=== PATIENT | female | born 1975 | race Caucasian/White ===

== ENCOUNTER 2017-01-03 17:54 | Inpatient (IN) ==
[2017-01-03] MEDS ORDERED: Vancomycin 1,000 MG in D5% in Water 250 ML IVPB ONE (18:28)
--- NOTE | 2017-01-03 18:52 | Emergency Department Note ---
Disposition Clinical Impression: Abscess, Erythema Disposition: Admitted As Inpatient Condition: Fair Referrals: Gadiel Sun, PAC [Primary Care Provider] - Time of Disposition: 18:45 General Adult HPI - General Chief complaint: ED Extremity Injury, Upper Stated complaint: redness in left arm post lancing Time Seen by Provider: 01/03/17 18:12 Source: patient Limitations: no limitations Nursing Notes Reviewed: Yes Vital Signs Reviewed: Yes - History of Present Illness HPI Narrative: 41-year-old female presents to the emergency department with L hand pain and swelling. patient was seen in the emergency department yesterday and had I&D of her L hand. Pt states she has been taking Bactrim and has changed the dressing at home but symptoms have been worsening. +increased swelling, erythema tracking up the arm, nausea. Pain Scale: 9 - Related Data Previous Rx's Medication Instructions Recorded Ondansetron ODT [Zofran ODT] 4 mg SL Q6HR PRN #14 tab.rapdis 11/14/15 HYDROcodone/Acet 5/325 mg [[place] 1 tab PO Q6H PRN #15 tab 10/05/16 5-325 mg] Sulfamethoxazole/Trimeth DS 2 each PO BID #28 tablet 10/05/16 [Bactrim DS] cephALEXin [Keflex] 500 mg PO QID #28 capsule 10/05/16 Sulfamethoxazole/Trimeth DS 1 each PO BID #16 tablet 01/02/17 [Bactrim DS] Allergies Allergy/AdvReac Type Severity Reaction Status Date / Time nalbuphine [From Nubain] Allergy Swelling Verified 01/03/17 18:03 of Lip/Tongue/Throat All systems ED: reviewed and negative except as stated. Review of Systems: As Per HPI Constitutional: Reports: fever, weakness Cardiovascular: Denies: chest pain, palpitations Respiratory: Denies: cough, dyspnea, wheezes Gastrointestinal: Reports: nausea. Denies: abdominal pain, vomiting Genitourinary: Denies: urgency, dysuria Integumentary: Reports: rash Past Medical History - Past Medical History Attestation: Yes The following information was validated with the patient. Source: patient Medical history: Reports: no medical history Psychiatric history: Reports: no psych history [employer] history: Reports: bilateral tubal ligation - Social History Smoking Status: Current every day smoker Smokeless Tobacco Status: No Alcohol use: Reports: none Drug use: Reports: marijuana Physical Exam General: Alert and in no acute distress Skin: Warm, dry, intact Head: Normocephalic and atraumatic Neck: Supple, trachea midline and no tenderness Cardiovascular: RRR, no murmur, normal perfusion Respiratory: CTAB, no wheezing, cough, or respiratory distress Musculoskeletal: Normal strength, TTP of the L hand, +erythema of LUE with proximal tracking. GI: Soft, nontender, nondistended. Bowel sounds present Neuro: A&O to person, place, time and situation. No focal deficits noted on exam Psychiatric: cooperative and appropriate mood and affect. - General Limitations: no limitations General appearance: alert Course Vital Signs Temperature 99.5 F 01/03/17 18:03 Pulse Rate 96 01/03/17 18:03 Respiratory Rate 20 01/03/17 18:03 Blood Pressure 136/87 01/03/17 18:03 O2 Sat by Pulse Oximetry 95 01/03/17 18:03 Temperature 99.5 F 01/03/17 18:03 Pulse Rate 80 01/03/17 18:48 Respiratory Rate 20 01/03/17 18:03 Blood Pressure 129/85 01/03/17 18:48 O2 Sat by Pulse Oximetry 99 01/03/17 18:48 Oxygen Delivery Oxygen Delivery Room Air Medical Decision Making - MDM Narrative Medical decision making narrative: Pt has worsening symptpms and has failed outpt therapy. Pt will be admitted to hospital for further care and evaluation. - Medical Records Medical records reviewed: Yes I reviewed the patient's medical records. - Lab Data Lab results reviewed: Yes I reviewed the patient's lab results. - Radiology Data Radiology results reviewed: Yes I reviewed the patient's radiology results.
[2017-01-03] MEDS ORDERED: *HR* HYDROmorphone (PF) 1 MG/ML SYRINGE IVP ONE (18:54)
[2017-01-03 18:58] LABS: Basophils % 0.3 %; Eosinophils # 0.3 K/mcL (0.0-0.6); Eosinophils % 2.3 %; Hematocrit 39.6 % (35.3-44.9); Hemoglobin 13.3 g/dL (11.5-15.4); Immature Granulocytes % 0.3 % (0-4); Lymphocytes # 2.1 K/mcL (0.6-4.6); Lymphocytes % 17.9 %; Mean Corpuscular HGB Conc 33.6 g/dL (31.6-35.5); Mean Corpuscular Hemoglobin 30.5 pg (28.0-33.3); Mean Corpuscular Volume 90.8 fL (83.0-100.0); Mean Platelet Volume 9.5 fL (9.4-12.4); Monocytes # 0.6 K/mcL (0.0-1.3); Monocytes % 5.5 %; Neutrophils # 8.6 K/mcL (1.6-8.9); Platelet Count 240 K/mcL (140-400); Red Blood Count 4.36 M/mcL (3.82-4.97); Red Cell Distribution Width 14.8 % (11.5-14.5); Segmented Neutrophils % 73.7 %
[2017-01-03] MEDS ORDERED: Naloxone 0.4 MG/ML INJ IVP PRN (20:52)
[2017-01-03] MEDS ORDERED: Ondansetron 4 MG/2 ML VIAL IVP PRN (20:52)
[2017-01-03] MEDS ORDERED: Acetaminophen 325 MG TABLET PO PRN (20:52)
[2017-01-03] MEDS: 0.9 % Sodium Chloride 1,000 ML IVC SCH (22:19)
[2017-01-03] MEDS: Famotidine 20 MG TABLET PO SCH (22:19)
--- NOTE | 2017-01-03 23:08 | Internal Med History&Physical ---
Date of Encounter: 01/03/17 Time of Encounter: 22:50 Assessment and Plan (1) Cellulitis and abscess of hand Current visit: Yes Status: Acute Acute cellulitis of left hand and left forearm with abscess of left hand - probably secondary to injury, s/p I&D yesterday Continue IV fluids, empiric IV Zosyn, IV Vancomycin, IV Morphine PRN Left hand x-ray - pending Chest x-ray - no acute process WBC - 11.6 Orthopedic consult - Dr. Cain Elevate left arm, labs in a.m., monitor closely (2) Tobacco abuse Current visit: Yes Status: Chronic Counseled about cessation, nicotine patch (3) DVT prophylaxis Current visit: Yes Status: Acute Continue heparin subcutaneous Internal Medicine - H&P: HPI Chief complaint: Left hand swelling and pain Admitted From: Emergency Dept Plans for Post Hospital Care: Home History of present illness: Ms. Denise is a 41 year old female with no significant past medical history. She presents to the ED with complaints of pain and swelling of her left hand and forearm. Examined in the room. Patient is awake and alert. Not in any distress. Able to provide all history. Daughter is at bedside. Patient states she initially came to the ED yesterday for left hand swelling. Was diagnosed with superficial abscess on left hand. She was evaluated by Dr. Cain in the ED, And bedside I&D was performed. Wound was packed with iodoform. She was discharged with Bactrim DS. symptoms of left hand swelling initially started 4 days ago. She cannot think of anything that may have started the symptoms. Denies bug bite or injury. Patient states she did well last night. Patient states when she woke up this morning, her swelling and pain of left hand was worse. She also noticed that her left forearm was swollen. States that there is mild drainage from the left hand. She noticed some redness of left forearm. Seems to be tracking up the left arm. Patient also complains of pain in the left axillary region. States her pain is currently 10 out of 10. Symptoms are worseith movement. No alleviating factors. She complains of mild subjective fever. No other associated symptoms. Denies chest pain or shortness of breath or palpitations or dizziness or cough. No abdominal pain or vomiting or diarrhea. No other acute complaints. Initial workup in the ED shows slightly elevated white count. She has been given IV vancomycin and the ED. X-ray of the left hand is pending. Patient is being admitted for left hand cellulitis with abscess. Orthopedic consult pending. She will be on IV Zosyn and IV vancomycin. IV morphine as needed for pain. Patient has been explained about her condition and plan of care in detail. She understood and agreed. No unanswered questions. CODE STATUS full code. Past Med Surg Social Fam HX - Past Medical History Medical history: no medical history Psychiatric history: no psych history - Past Surgical History Surgical History: cholecystectomy - Social History Smoking Status: Current every day smoker Smokeless Tobacco Status: No Alcohol use: none Drug use: marijuana - Family History Mother Adopted: No Hx Family Cardiac Disorders: No Hx Family Respiratory Disorders: No Internal Medicine - H&P: Meds 3 Allergy/AdvReac Type Severity Reaction Status Date / Time nalbuphine [From Nubain] Allergy Swelling Verified 01/03/17 18:03 of Lip/Tongue/Throat All Systems PM: A 10-system review of systems was performed and is negative for pertinent findings except as documented above in the HPI. - Constitutional Constitutional: fatigue, fever(s), no weakness - EENT Eyes: no blurry vision - Cardiovascular Cardiovascular ROS IM: no chest pain, no claudication, no diaphoresis, no dyspnea, no dyspnea on exertion, no edema, no lightheadedness, no orthopnea, no palpitations, no syncope - Respiratory Respiratory: no cough, no dyspnea, no hemoptysis, no dyspnea on exertion, no wheezing, no pain on inspiration - Gastrointestinal Gastrointestinal: no abdominal pain, no bloating, no cramping, no diarrhea, no hematemesis, no hematochezia, no nausea, no vomiting - Genitourinary Genitourinary: no dysuria - Musculoskeletal Additional comments: Left hand and forearm pain and swelling. Redness over her left forearm. Mild drainage from left hand. - Neurological Neurological ROS: no abnormal gait, no confusion, no dizziness, no focal weakness, no loss of vision, no numbness, no tingling, no weakness - Constitutional Vitals: Temp Pulse Resp BP Pulse Ox 98.8 F 70 20 113/72 97 01/03/17 21:36 01/03/17 21:36 01/03/17 21:36 01/03/17 21:36 01/03/17 21:36 General appearance: Present: cooperative, A&O X 3, pleasant, no acute distress, obese, answers questions appropriately Exam: In discomfort due to pain - Head Head exam: Present: atraumatic - Eye Eye exam: Present: EOMI - ENT ENT exam: Present: mucous membranes moist - Respiratory Respiratory exam: Present: CTAB. Absent: rales, rhonchi, wheezes, tachypnea - Cardiovascular Cardiovascular exam: Present: RRR, +S1, +S2 - GI/Abdominal GI/Abdominal exam: Present: soft. Absent: distended, firm, guarding, tenderness - Extremities Exam Extremities exam: Present: radial pulses palpable and symmetrical. Absent: calf tenderness, cyanotic, pedal edema Additional comments: Swelling and tenderness over left hand dorsal and palmar aspect. Mild swelling over left forearm. Erythema over left forearm. Minimal drainage from left hand. Limited range of motion of fingers on the left hand. Swelling of all fingers on the left hand. - Neurological Exam Neurological exam: Present: alert, oriented X3, no focal deficits. Absent: facial droop, speech deficit Internal Med - H&P Results - Labs CBC & Chem 7: 01/03/17 18:43 - Impressions ITS Impressions Chest X-Ray 01/03/17 20:57 IMPRESSION: No acute process. D/ / Bob Lobato MD / Bob Lobato MD Interpreting Provider: Bob Lobato MD
[2017-01-03] MEDS: *HR* Heparin 5,000 UNIT/ML VIAL SQ SCH (23:59)
[2017-01-03] MEDS: Nicotine 21 MG PATCH.TD24 TD SCH (23:59)
[2017-01-04 04:25] LABS: Basophils % 0.4 %; Eosinophils # 0.4 K/mcL (0.0-0.6); Eosinophils % 4.3 %; Hematocrit 35.9 % (35.3-44.9); Immature Granulocytes % 0.3 % (0-4); Lymphocytes # 2.6 K/mcL (0.6-4.6); Lymphocytes % 28.7 %; Mean Corpuscular HGB Conc 32.6 g/dL (31.6-35.5); Mean Corpuscular Hemoglobin 30.2 pg (28.0-33.3); Mean Corpuscular Volume 92.5 fL (83.0-100.0); Mean Platelet Volume 9.9 fL (9.4-12.4); Monocytes # 0.8 K/mcL (0.0-1.3); Monocytes % 8.6 %; Neutrophils # 5.2 K/mcL (1.6-8.9); Platelet Count 208 K/mcL (140-400); Red Blood Count 3.88 M/mcL (3.82-4.97); Red Cell Distribution Width 14.8 % (11.5-14.5); Segmented Neutrophils % 57.7 %
[2017-01-04 04:30] LABS: Prothrombin Time 10.6 Seconds (9.4-12.1)
[2017-01-04 04:37] LABS: Hemoglobin 11.7 g/dL (11.5-15.4)
[2017-01-04 04:40] LABS: BUN/Creatinine Ratio 15 (6-26); Blood Urea Nitrogen 11 mg/dL (7-20); Calcium 8.5 mg/dL (8.6-10.8); Carbon Dioxide 20 mEq/L (19-29); Chloride 109 mEq/L (98-109); Glucose 118 mg/dL (70-99); Osmolality,Calculated 286 (280-300); Potassium 3.5 mEq/L (3.5-4.5); Sodium 138 mEq/L (136-145); eGFR For African Americans > 60 (> 60); eGFR For Non-African Americans > 60 (> 60)
[2017-01-04] MEDS: *HR* Morphine 2 MG/ML SYRINGE IVP PRN ×5 (04:50→19:28)
[2017-01-04] MEDS: Vancomycin 1,500 MG in D5% in Water 250 ML IVPB SCH ×2 (04:53→17:30)
[2017-01-04] MEDS ORDERED: Vancomycin 1,000 MG in D5% in Water 250 ML IVPB SCH (06:00)
--- NOTE | 2017-01-04 07:27 | Orthopedic Consult Note ---
Date of Encounter: 01/04/17 Time of Encounter: 07:23 Assessment and Plan (1) Abscess Current Visit: Yes Status: Acute I did discuss the diagnosis in detail with the patient. She does have an abscess of the left hand which is developing into a collar button abscess. She is admitted to the hospitalist and is on broad-spectrum IV antibiotics. My recommendation was for incision, drainage, irrigation, and debridement, extending the volar incision and making a small dorsal incision as well. The risks discussed included but were not limited to stiffness, bleeding, infection , blood clots, damage to neurovascular structures, tendons, ligaments, and bone. Also discussed was the risk of continued symptoms and possible need for further procedures. I did recommend performing this under a local anesthetic and we will do so later today at the bedside. The patient is aware of the risk of persistence of infection and if she does not improve in the next 24 hours she may require a formal operative debridement and irrigation. I explained all this to the patient in simple terms and she wished to proceed. History of Present Illness HPI: Ms. Denise is a 41 year old female who did have an incision and drainage procedure performed on her left hand on Wednesday. She had done well on Wednesday with her oral antibiotics, Bactrim, and daily dressing and packing changes. Wednesday, however she developed worsening of her pain and presented back to the emergency department where she was admitted to the hospitalist. The patient complains of isolated pain to the left hand in the area of the I&D site. No new injuries or complaints otherwise. No feelings of illness. No numbness, tingling, or any other associated signs or symptoms or modifying factors. Past Med Surg Social Fam HX - Past Medical History Medical history: no medical history Psychiatric history: no psych history - Past Surgical History Surgical History: cholecystectomy - Social History Smoking Status: Current every day smoker Smokeless Tobacco Status: No Alcohol use: none Drug use: marijuana - Family History Mother Adopted: No Hx Family Cardiac Disorders: No Hx Family Respiratory Disorders: No Medications and Allergies 3 Allergy/AdvReac Type Severity Reaction Status Date / Time nalbuphine [From Nubain] Allergy Swelling Verified 01/03/17 18:03 of Lip/Tongue/Throat All Systems Reviewed: Constitutional and musculoskeletal systems were reviewed and are negative unless otherwise stated in history of present illness. Physical Exam - Constitutional Vitals: Temp Pulse Resp BP Pulse Ox 98.3 F 68 18 112/75 96 01/04/17 04:18 01/04/17 04:18 01/04/17 04:18 01/04/17 04:18 01/04/17 04:18 CONSTITUTIONAL -Vitals reviewed -The patient is well developed, well nourished, well groomed PSYCHIATRIC -Fully alert and oriented -Pleasant mood LEFT UPPER EXTREMITY Moderate diffuse swelling of the hand Inspection shows the I&D site is draining nicely with a mild amount of purulent drainage. Minimal surrounding erythema on the volar aspect around the I&D site. She does have some ecchymosis along the ulnar aspect of the ring finger base with some swelling and edema in the dorsal aspect of the hand. She can grossly flex and extend the digits with some limitation due to the pain and stiffness The fingertips are all grossly sensate and well-perfused, and the radial artery pulse is 2+. Results - Labs Result Diagrams: 01/04/17 03:41 01/04/17 03:41 Labs: Abnormal lab results RDW 14.8 % (11.5-14.5) H 01/04/17 03:41 Glucose 118 mg/dL (70-99) H 01/04/17 03:41 Calcium 8.5 mg/dL (8.6-10.8) L 01/04/17 03:41 H & H 01/04/17 Range/Units 03:41 Hgb 11.7 D (11.5-15.4) g/dL Hct 35.9 (35.3-44.9) % All other labs normal. Consult Discharge Plan - Plan Referrals: Gadiel Sun, PAC [Primary Care Provider] -
[2017-01-04] MEDS: Piperacillin/Tazobactam 3.375 GM in D5% in Water (Mini-Bag+) 100 ML IVPB SCH ×4 (07:54→23:16)
[2017-01-04] MEDS: Nicotine 21 MG PATCH.TD24 TD SCH (07:56)
[2017-01-04] MEDS: Famotidine 20 MG TABLET PO SCH ×2 (07:56→19:28)
[2017-01-04] MEDS: *HR* Heparin 5,000 UNIT/ML VIAL SQ SCH ×3 (07:56→23:13)
[2017-01-04] MEDS ORDERED: Lidocaine/EPI 1:100k 1% 20 ML VIAL INFILT ONE (12:45)
--- NOTE | 2017-01-04 16:39 | Internal Med Progress Note ---
Date of Encounter: 01/04/17 Time of Encounter: 16:36 - Assessment and plan (1) Cellulitis and abscess of hand Current Visit: Yes Status: Acute Assessment and plan: s/p bedside I&D by Dr. Cain (01/04/17) continue IV abx (Vanc and Zosyn0 f/u wound cultures pain control (2) Tobacco abuse Current Visit: Yes Status: Chronic Assessment and plan: smoking cessation counseling provided nicotine supplementation provided (3) Obesity (BMI 30-39.9) Current Visit: Yes Status: Acute (4) DVT prophylaxis Current Visit: Yes Status: Acute Assessment and plan: Heparin SQ - Subjective Interval history: Pt seen and examined with family present at bedside. S/P I&D of the right hand abscess by orthopedic surgery. reports of severe pain at the site of incision. will adjust pain medications - Constitutional Vitals: Temp Pulse Resp BP Pulse Ox 97.8 F 59 18 115/76 98 01/04/17 12:11 01/04/17 12:11 01/04/17 12:11 01/04/17 12:11 01/04/17 12:11 General appearance: Present: cooperative, A&O X 3, pleasant, no acute distress, obese, answers questions appropriately - Head Head exam: Present: atraumatic, normocephalic - Eye Eye exam: Present: conjuntiva pink, sclera anicteric - Respiratory Respiratory exam: Present: CTAB. Absent: accessory muscle use, rales, rhonchi, wheezes - Cardiovascular Cardiovascular exam: Present: RRR, +S1, +S2. Absent: diastolic murmur, gallop, rubs, systolic murmur - GI/Abdominal GI/Abdominal exam: Present: normal bowel sounds, soft, no peritoneal signs. Absent: distended, tenderness - Extremities Exam Extremities exam: Present: warm, radial pulses palpable and symmetrical. Absent : calf tenderness, cyanotic, pedal edema - Neurological Exam Neurological exam: Present: alert, oriented X3 - Psychiatric Psychiatric exam: Present: normal affect, normal mood Internal Medicine: Result - Labs CBC & Chem 7: 01/04/17 03:41 01/04/17 03:41 Labs: Short CBC 01/04/17 Range/Units 03:41 WBC 9.0 (4.3-11.1) K/mcL Hgb 11.7 D (11.5-15.4) g/dL Hct 35.9 (35.3-44.9) % Plt Count 208 (140-400) K/mcL Neutrophils # 5.2 (1.6-8.9) K/mcL BMP 01/04/17 03:41 Sodium 138 Potassium 3.5 Chloride 109 Carbon Dioxide 20 BUN 11 Creatinine 0.73 Glucose 118 H Calcium 8.5 L - ABG Interpretation ABG results: PT/INR, D-dimer PT 10.6 Seconds (9.4-12.1) 01/04/17 03:41 - Impressions Impressions Chest X-Ray 01/03/17 20:57 IMPRESSION: No acute process. D/ / Bob Lobato MD / Bob Lobato MD Interpreting Provider: Bob Lobato MD Forearm X-Ray 01/04/17 00:01 IMPRESSION: Soft tissue swelling in the hand and forearm without radiographic evidence for osteomyelitis at this time. D/ / Jimenez Pascual MD / Jimenez Pascual MD Interpreting Provider: Jimenez Pascual MD Hand X-Ray 01/04/17 00:01 IMPRESSION: Soft tissue swelling in the hand and forearm without radiographic evidence for osteomyelitis at this time. D/ / Jimenez Pascual MD / Jimenez Pascual MD Interpreting Provider: Jimenez Pascual MD Consult Discharge Plan - Plan Referrals: Gadiel Sun, PAC [Primary Care Provider] -
[2017-01-04] MEDS: *HR* HYDROcodone/Acet 5/325 mg TABLET PO PRN ×2 (17:06→23:13)
[2017-01-05] MEDS: *HR* Morphine 2 MG/ML SYRINGE IVP PRN ×5 (00:30→22:04)
[2017-01-05 03:16] LABS: Basophils # 0.1 K/mcL (0.0-0.2); Basophils % 0.7 %; Eosinophils # 0.3 K/mcL (0.0-0.6); Eosinophils % 4.3 %; Hematocrit 35.7 % (35.3-44.9); Hemoglobin 11.9 g/dL (11.5-15.4); Immature Granulocytes % 0.6 % (0-4); Immature Platelets 2.6 % (1.1-6.1); Lymphocytes # 2.6 K/mcL (0.6-4.6); Lymphocytes % 36.6 %; Mean Corpuscular HGB Conc 33.3 g/dL (31.6-35.5); Mean Corpuscular Hemoglobin 30.4 pg (28.0-33.3); Mean Corpuscular Volume 91.1 fL (83.0-100.0); Mean Platelet Volume 9.6 fL (9.4-12.4); Monocytes # 0.5 K/mcL (0.0-1.3); Monocytes % 6.5 %; Neutrophils # 3.7 K/mcL (1.6-8.9); Platelet Count 219 K/mcL (140-400); Red Blood Count 3.92 M/mcL (3.82-4.97); Red Cell Distribution Width 14.7 % (11.5-14.5); Segmented Neutrophils % 51.3 %
[2017-01-05 03:31] LABS: BUN/Creatinine Ratio 17 (6-26); Blood Urea Nitrogen 12 mg/dL (7-20); Calcium 8.8 mg/dL (8.6-10.8); Carbon Dioxide 24 mEq/L (19-29); Chloride 109 mEq/L (98-109); Glucose 109 mg/dL (70-99); Magnesium 1.9 mg/dL (1.6-2.6); Osmolality,Calculated 288 (280-300); Phosphorous 2.9 mg/dL (2.3-4.7); Potassium 3.6 mEq/L (3.5-4.5); Sodium 139 mEq/L (136-145); eGFR For African Americans > 60 (> 60); eGFR For Non-African Americans > 60 (> 60)
[2017-01-05] MEDS: *HR* HYDROcodone/Acet 5/325 mg TABLET PO PRN ×4 (06:00→20:20)
[2017-01-05] MEDS: Vancomycin 1,500 MG in D5% in Water 250 ML IVPB SCH ×2 (06:01→17:31)
[2017-01-05] MEDS: 0.9 % Sodium Chloride 1,000 ML IVC SCH (07:55)
[2017-01-05] MEDS: *HR* Heparin 5,000 UNIT/ML VIAL SQ SCH ×3 (07:57→22:30)
[2017-01-05] MEDS: Nicotine 21 MG PATCH.TD24 TD SCH (07:58)
[2017-01-05] MEDS: Piperacillin/Tazobactam 3.375 GM in D5% in Water (Mini-Bag+) 100 ML IVPB SCH ×3 (07:58→22:30)
[2017-01-05] MEDS: Famotidine 20 MG TABLET PO SCH (07:59)
--- NOTE | 2017-01-05 08:03 | Orthopedics Progress Note ---
Date of Encounter: 01/05/17 Time of Encounter: 08:01 - Assessment and Plan (1) Abscess Current Visit: Yes Status: Acute I did discuss the diagnosis in detail with the patient. She does have an abscess of the left hand which is developing into a collar button abscess. She is admitted to the hospitalist and is on broad-spectrum IV antibiotics. My recommendation was for incision, drainage, irrigation, and debridement, extending the volar incision and making a small dorsal incision as well. The risks discussed included but were not limited to stiffness, bleeding, infection , blood clots, damage to neurovascular structures, tendons, ligaments, and bone. Also discussed was the risk of continued symptoms and possible need for further procedures. I did recommend performing this under a local anesthetic and we will do so later today at the bedside. The patient is aware of the risk of persistence of infection and if she does not improve in the next 24 hours she may require a formal operative debridement and irrigation. I explained all this to the patient in simple terms and she wished to proceed. Subjective Interval history: S: Resting comfortably in bed Improved pain to the left hand O: Afebrile and her vital signs are stable Improved swelling to the left hand with elevation Dorsal and volar I&D sites look good with minimal drainage. The packing is changed She can grossly flex and extend the digits with some limitation due to pain and swelling The fingertips are all grossly sensate and well-perfused, and the radial artery pulse is 2+. I&D cultures are pending A: Postoperative the left hand for collar-button abscess P: Continue elevation Continue antibiotics per the primary team Continue daily dressing and packing changes with quarter inch gauze packing Upon discharge follow-up in the office in 1 week for clinical reevaluation or sooner if needed Objective Vital signs: Vital Signs Temp Pulse Resp BP Pulse Ox 01/05/17 07:50 98.2 F 66 18 127/86 98 01/05/17 03:32 98.1 F 68 15 134/62 99 01/04/17 23:27 98.4 F 66 17 115/80 97 01/04/17 19:46 98.7 F 72 16 132/74 98 01/04/17 16:37 97.9 F 79 18 127/84 99 01/04/17 12:11 97.8 F 59 18 115/76 98 Intake and Output 01/04/17 01/05/1701/05/17 23:59 07:59 15:59 Intake Total 350 / 350 350 / 350 Output Total 400 / 400 0 / 0 Balance -50 / -50 350 / 350 Intake: IV Fluids 350 / 350 350 / 350 Zosyn 3.375 GM In Dextrose 5% ( 100 / 100 100 / 100 Minibag+) 100 ML 100 ML @ 25 mls/hr IVPB Q8HR [facility] Rx#: [id number] Vancocin 1,500 MG In Dextrose 5 250 / 250 250 / 250 % 250 ML @ 166.67 mls/hr IVPB Q12H [facility] Rx#:[id number] Oral 0 / 0 0 / 0 Output: Urine 400 / 400 0 / 0 Other: Meal Dinner Percent of Meal Consumed 100% - Labs CBC & BMP: 01/05/17 02:58 01/05/17 02:58 Labs: Abnormal lab results RDW 14.7 % (11.5-14.5) H 01/05/17 02:58 Glucose 109 mg/dL (70-99) H 01/05/17 02:58 POC Glucose 98 (58-89) H 01/04/17 12:15 Consult Discharge Plan - Plan Referrals: Gadiel Sun, PAC [Primary Care Provider] -
--- NOTE | 2017-01-05 17:42 | Internal Med Progress Note ---
Date of Encounter: 01/05/17 Time of Encounter: 14:15 - Assessment and plan (1) Cellulitis and abscess of hand Current Visit: Yes Status: Acute Assessment and plan: Uncertain etiology. Patient underwent bedside incision and drainage of left hand abscess as an outpatient and was discharged on oral Bactrim, with no improvement in symptoms. Patient is noted to have residual abscess and underwent repeat incision and drainage on January 04. Both wound cultures grew MRSA. Wound culture from January 02 also grows Klebsiella. Blood cultures remain negative. Continue IV vancomycin and Zosyn while in house. May be discharged on oral Bactrim. Continue pain control with when necessary IV morphine and oral Percocet. Left upper extremity elevation. (2) Tobacco abuse Current Visit: Yes Status: Chronic Assessment and plan: Continue nicotine transdermal patch as needed. (3) Obesity (BMI 30-39.9) Current Visit: Yes Status: Chronic - Subjective Interval history: Reports improvement in left hand pain and swelling. Underwent incision and drainage at bedside yesterday. No fever, chills, nausea or vomiting. - Constitutional Vitals: Temp Pulse Resp BP Pulse Ox 98.0 F 68 18 144/87 100 01/05/17 11:12 01/05/17 11:12 01/05/17 11:12 01/05/17 11:12 01/05/17 11:12 General appearance: Present: cooperative, A&O X 3, obese, answers questions appropriately - Respiratory Respiratory exam: Present: CTAB. Absent: accessory muscle use, rales, rhonchi, wheezes - Cardiovascular Cardiovascular exam: Present: RRR, +S1, +S2. Absent: diastolic murmur, gallop, rubs, systolic murmur - GI/Abdominal GI/Abdominal exam: Present: normal bowel sounds, soft, no peritoneal signs. Absent: distended, tenderness - Extremities Exam Extremities exam: Present: warm, radial pulses palpable and symmetrical. Absent : calf tenderness, cyanotic, pedal edema Additional comments: Left hand and forearm with diffuse edema, improving. Left hand in dry and intact dressing. Status post incision and drainage. Internal Medicine: Result - Labs CBC & Chem 7: 01/05/17 02:58 01/05/17 02:58 Labs: Short CBC 01/05/17 Range/Units 02:58 WBC 7.2 (4.3-11.1) K/mcL Hgb 11.9 (11.5-15.4) g/dL Hct 35.7 (35.3-44.9) % Plt Count 219 (140-400) K/mcL Neutrophils # 3.7 (1.6-8.9) K/mcL BMP 01/05/17 02:58 Sodium 139 Potassium 3.6 Chloride 109 Carbon Dioxide 24 BUN 12 Creatinine 0.72 Glucose 109 H Calcium 8.8 - ABG Interpretation ABG results: PT/INR, D-dimer PT 10.6 Seconds (9.4-12.1) 01/04/17 03:41 Consult Discharge Plan - Plan Referrals: Gadiel Sun, PAC [Primary Care Provider] -
[2017-01-05] MEDS ORDERED: Vancomycin 1,750 MG in D5% in Water 250 ML IVPB SCH (18:30)
[2017-01-06] MEDS: *HR* HYDROcodone/Acet 5/325 mg TABLET PO PRN ×2 (01:25→11:17)
[2017-01-06] MEDS: *HR* Morphine 2 MG/ML SYRINGE IVP PRN ×2 (01:55→06:37)
[2017-01-06] MEDS ORDERED: Vancomycin 1,750 MG in D5% in Water 500 ML IVPB SCH (06:00)
--- NOTE | 2017-01-06 07:41 | Orthopedics Progress Note ---
Date of Encounter: 01/06/17 Time of Encounter: 07:40 - Assessment and Plan (1) Abscess Current Visit: Yes Status: Acute I did discuss the diagnosis in detail with the patient. She does have an abscess of the left hand which is developing into a collar button abscess. She is admitted to the hospitalist and is on broad-spectrum IV antibiotics. My recommendation was for incision, drainage, irrigation, and debridement, extending the volar incision and making a small dorsal incision as well. The risks discussed included but were not limited to stiffness, bleeding, infection , blood clots, damage to neurovascular structures, tendons, ligaments, and bone. Also discussed was the risk of continued symptoms and possible need for further procedures. I did recommend performing this under a local anesthetic and we will do so later today at the bedside. The patient is aware of the risk of persistence of infection and if she does not improve in the next 24 hours she may require a formal operative debridement and irrigation. I explained all this to the patient in simple terms and she wished to proceed. Subjective Interval history: S: Resting comfortably in bed Improved pain to the left hand O: Afebrile and her vital signs are stable Significant improvement in the swelling Erythema has resolved Overall looks excellent She can grossly flex and extend the digits with some limitation due to pain and swelling The fingertips are all grossly sensate and well-perfused, and the radial artery pulse is 2+. I&D cultures are pending A: Post I&D of the left hand for collar-button abscess. Doing well P: Continue elevation Continue antibiotics per the primary team Continue daily dressing and packing changes with quarter inch gauze packing Orthopedically stable for discharge Upon discharge follow-up in the office in 1 week for clinical reevaluation or sooner if needed Objective Vital signs: Vital Signs Temp Pulse Resp BP Pulse Ox 01/06/17 07:28 97.7 F 60 14 169/93 98 01/06/17 03:58 98.0 F 64 14 143/80 97 01/05/17 19:21 98.3 F 73 16 145/91 96 01/05/17 11:12 98.0 F 68 18 144/87 100 01/05/17 07:50 98.2 F 66 18 127/86 98 Intake and Output 01/05/17 01/05/17 01/06/17 15:59 23:59 07:59 Intake Total 860 / 860 580 / 580 500 / 500 Output Total 0 / 0 700 / 700 Balance 860 / 860 580 / 580 -200 / -200 Intake: IV Fluids 500 / 500 100 / 100 100 / 100 0.9 % Sodium Chloride 1,000 ML 400 / 400 @ 60 mls/hr IVC .[id number] LUCERO Rx #:[id number] Zosyn 3.375 GM In Dextrose 5% ( 100 / 100 100 / 100 100 / 100 Minibag+) 100 ML 100 ML @ 25 mls/hr IVPB Q8HR LUCERO Rx#: [id number] Oral 360 / 360 480 / 480 400 / 400 Output: Urine 0 / 0 700 / 700 Other: Meal Lunch Dinner Percent of Meal Consumed 100% 100% # Voids 1 4 # Bowel Movements 0 Weight 99.337 kg Patient Weight 01/06/17 23:59 Weight 99.337 kg - Labs CBC & BMP: 01/05/17 02:58 01/05/17 02:58 Labs: Abnormal lab results RDW 14.7 % (11.5-14.5) H 01/05/17 02:58 Glucose 109 mg/dL (70-99) H 01/05/17 02:58 POC Glucose 98 (58-89) H 01/04/17 12:15 Vancomycin Trough 7.9 mcg/mL (10-20) L 01/05/17 17:02 Consult Discharge Plan - Plan Referrals: Gadiel Sun, PAC [Primary Care Provider] -
[2017-01-06] MEDS: Piperacillin/Tazobactam 3.375 GM in D5% in Water (Mini-Bag+) 100 ML IVPB SCH (08:28)
[2017-01-06] MEDS: *HR* Heparin 5,000 UNIT/ML VIAL SQ SCH (08:28)
[2017-01-06] MEDS: Nicotine 21 MG PATCH.TD24 TD SCH (08:29)
[2017-01-06 10:55] VITALS: BP 146/89
--- NOTE | 2017-01-06 13:18 | Discharge Summary ---
Date of Encounter: 01/06/17 Time of Encounter: 13:15 - Discharge Diagnosis (1) Cellulitis and abscess of hand Priority: Primary Status: Acute (2) Tobacco abuse Priority: Secondary Status: Chronic (3) Obesity (BMI 30-39.9) Priority: Secondary Status: Chronic - Discharge Medications Prescriptions: HYDROcodone/Acet 5/325 mg [[place] 5-325 mg] 1 tab PO Q6H PRN #15 tablet PRN Reason: moderate to severe pain Sulfamethoxazole/Trimeth DS [Bactrim DS] 1 each PO BID #20 tablet Home Medications: HYDROcodone/Acet 5/325 mg [[place] 5-325 mg] 1 tab PO Q6H PRN #15 tablet 01/06/17 [Rx] Sulfamethoxazole/Trimeth DS [Bactrim DS] 1 each PO BID #20 tablet 01/06/17 [Rx] Allergies/Adverse Reactions: 3 Allergy/AdvReac Type Severity Reaction Status Date / Time nalbuphine [From [facility]] Allergy Swelling Verified 01/03/17 18:03 of Lip/Tongue/Throat Date of admission: 01/03/17 20:52 Primary care physician: Gadiel Sun Consults: 01/03/17 20:57 Consult to Orthopedic Surgery [CONS] Routine Consulting Provider: [facility] Reason for Consult: Left hand abscess, cellulitis Call Completed: Yes Discharging clinician: Viki Jin Anticipated date of discharge: 01/06/17 - Patient Status Disposition: Home, Self-Care Condition: Fair Functional capacity at discharge: independent ambulation Overall status at discharge: patient is progressing back to baseline - Discharge Instructions Instructions: Cellulitis (DC) Follow Up With: Gracia Granados [Advanced Practice Nurse] - 01/13/17 9:30 am Nelly Rendon PAC [Physician Drawing Box Tender] - 01/12/17 11:20 am Additional Instructions: F/up with PCP in 1-2 weeks F/up with - orthopedics in 1-2 weeks - Diet and Activity Activity: resume usual activities as tolerated Diet: low salt diet Hospital course: Ms. Denise is a 41 year old female with no significant past medical history, is admitted with left hand pain and swelling. Patient underwent bedside incision and drainage of a small left hand abscess 2 days prior to this admission and was discharged home on oral Bactrim. However, she noticed worsening pain, swelling and redness of her left hand. She was started on IV Zosyn and vancomycin. Orthopedic surgery was consulted and patient underwent repeat incision and drainage with incisions on the volar and dorsal aspects of her left hand, at bedside. She improved symptomatically, leukocytosis improved and she remained hemodynamically stable. Blood cultures remained negative. Wound culture from 01/02/2017 grew Klebsiella and MRSA, wound culture from 01/04/2017 grew MRSA. Patient currently does not require any packing of left hand wound due to the small size. She is currently cleared by orthopedic surgery for discharge and outpatient follow-up. She is being discharged on oral Bactrim. She is also noted to have elevated BP and is encouraged to follow lifestyle modifications including low sodium diet and moderate exercise and f/up with PCP as outpatient, she verbalized understanding. - Time Spent with Patient Total time spent providing and/or coordinating discharge services: Greater than 30 minutes (40 min) - Constitutional Vitals: Temp Pulse Resp BP Pulse Ox 98.3 F 71 14 146/89 97 01/06/17 10:54 01/06/17 10:54 01/06/17 10:54 01/06/17 10:54 01/06/17 10:54 General appearance: Present: cooperative, A&O X 3, obese, answers questions appropriately - Extremities Exam Extremities exam: Present: warm, radial pulses palpable and symmetrical. Absent : calf tenderness, cyanotic, pedal edema Additional comments: Left hand with open incisions on volar and dorsal surfaces, healing with no purulent discharge
[2017-01-06] MEDS ORDERED: Aminoglycoside Consult 1 EACH MC ONE (14:37)
== END 2017-01-06 14:38 | disposition home or self-care (01) | DRG 364 ==
LOC: EMEROO 17:54 → 3ANU 17:54 → SUATTDRO 19:48 → 3ANU 20:59
PROVIDERS: ADMIT Internal Medicine; ATTEND Internal Medicine

== ENCOUNTER 2020-08-24 18:47 | Observation (INO) ==
[2020-08-24 19:26] LABS: Bilirubin,Urine Negative (Negative); Blood,Urine Trace (Negative); Clarity,Urine Clear (Clear); Color,Urine Yellow (Yellow); Glucose,Urine (UA) Normal (Normal); Hyaline Casts,Urine Few per lpf (None Seen); Ketones,Urine Trace mg/dL (Negative); Leukocyte Esterase,Urine Trace (Negative); Mucus,Urine Few per lpf (None-Few); Nitrite,Urine Negative (Negative); Protein,Urine 70 mg/dL (Neg-Trace); Specific Gravity,Urine > 1.030 (1.010-1.025); Squamous Epithelial Cell,Urine Moderate per hpf (None-Few); Urobilinogen,Urine Normal (Normal)
[2020-08-24] MEDS ORDERED: Morphine Sulfate 2 MG/ML SYRINGE IVP ONE (19:34)
[2020-08-24] MEDS ORDERED: Ondansetron 4 MG/2 ML VIAL IVP ONE (19:36)
[2020-08-24] MEDS ORDERED: 0.9 % Sodium Chloride 1,000 ML IVC ONE (19:36)
[2020-08-24 20:16] LABS: Basophils % 0.3 %; Eosinophils # 0.2 K/mcL (0.0-0.6); Eosinophils % 1.3 %; Hematocrit 35.5 % (35.3-44.9); Hemoglobin 11.6 g/dL (11.5-15.4); Immature Granulocytes % 0.5 % (0-4); Lymphocytes # 1.6 K/mcL (0.6-4.6); Lymphocytes % 13.7 %; Mean Corpuscular HGB Conc 32.7 g/dL (31.6-35.5); Mean Corpuscular Hemoglobin 29.7 pg (28.0-33.3); Mean Platelet Volume 9.1 fL (9.4-12.4); Monocytes # 0.6 K/mcL (0.0-1.3); Monocytes % 5.4 %; Neutrophils # 9.2 K/mcL (1.6-8.9); Platelet Count 248 K/mcL (140-400); Red Cell Distribution Width 13.6 % (11.5-14.5); Segmented Neutrophils % 78.8 %; White Blood Count 11.7 K/mcL (4.3-11.1)
[2020-08-24 20:58] LABS: Alanine Aminotransferase 12 Units/L (7-52); Albumin 3.6 g/dL (3.5-5.7); Albumin/Globulin Ratio 1.2 (1.1-2.2); Alkaline Phosphatase 85 Units/L (34-104); Aspartate Amino Transferase 11 Units/L (13-39); BUN/Creatinine Ratio 19 (6-26); Bilirubin,Indirect 0.2 mg/dL (0.0-1.0); Bilirubin,Total 0.2 mg/dL (0.3-1.0); Blood Urea Nitrogen 11 mg/dL (6-20); Calcium 8.8 mg/dL (8.6-10.3); Carbon Dioxide 27 mEq/L (23-29); Chloride 101 mEq/L (98-107); Globulin 3.1 g/dL (2.4-3.5); Glucose 105 mg/dL (70-105); Lipase < 3 Units/L (11-82); Osmolality,Calculated 282 (280-300); Potassium 3.5 mEq/L (3.5-5.1); Sodium 136 mEq/L (136-145); Total Protein 6.7 g/dL (6.4-8.9); eGFR For African Americans > 60 (> 60); eGFR For Non-African Americans > 60 (> 60)
[2020-08-24] MEDS ORDERED: metroNIDAZOLE 500 MG TABLET PO ONE (21:09)
[2020-08-24] MEDS ORDERED: *HR* FentaNYL (PF) 100 MCG/2 ML VIAL IVP ONE (21:26)
[2020-08-24 22:50] LABS: Candida DNA Not Detected (Not Detect); Gardnerella DNA Not Detected (Not Detect); Trichomonas DNA Not Detected (Not Detect)
[2020-08-25] MEDS ORDERED: Doxycycline 100 MG in 0.9 % Sodium Chloride Mini Bag 100 ML IVPB ONE (00:49)
[2020-08-25] MEDS ORDERED: *HR* FentaNYL (PF) 100 MCG/2 ML VIAL IVP ONE (00:59)
[2020-08-25] MEDS ORDERED: Ondansetron 4 MG/2 ML VIAL IVP ONE (00:59)
[2020-08-25] MEDS ORDERED: Nicotine 2 MG GUM BC PRN (04:47)
[2020-08-25] MEDS ORDERED: Acetaminophen 325 MG TABLET PO PRN ×2 (04:50→20:47)
[2020-08-25] MEDS ORDERED: Ondansetron 4 MG/2 ML VIAL IVP PRN (04:51)
[2020-08-25] MEDS: *HR* OxyCODONE Immed Rel 5 MG TABLET PO PRN ×3 (07:01→20:08)
[2020-08-25] MEDS: Nicotine 14 MG PATCH.TD24 TD SCH (07:03)
[2020-08-25] MEDS: Ibuprofen 600 MG TABLET PO PRN ×2 (09:16→15:14)
[2020-08-25] MEDS: Doxycycline 100 MG CAPSULE PO SCH ×2 (09:16→20:08)
[2020-08-25] MEDS: cefOXitin 2,000 MG in Water for inj. (sterile) 20 ML IVP SCH ×2 (12:34→18:49)
[2020-08-25] MEDS ORDERED: Cefepime HCl 2,000 MG in 0.9 % Sodium Chloride Mini Bag 100 ML IVPB ONE (21:09)
[2020-08-26] MEDS: cefOXitin 2,000 MG in Water for inj. (sterile) 20 ML IVP SCH ×3 (00:02→11:57)
[2020-08-26] MEDS: Ibuprofen 600 MG TABLET PO PRN (03:41)
[2020-08-26] MEDS: *HR* OxyCODONE Immed Rel 5 MG TABLET PO PRN (03:44)
[2020-08-26] MEDS: Doxycycline 100 MG CAPSULE PO SCH (08:38)
[2020-08-26] MEDS: Nicotine 14 MG PATCH.TD24 TD SCH (08:38)
[2020-08-26 12:40] VITALS: BP 177/106
== END 2020-08-26 14:13 | disposition home or self-care (01) ==
LOC: EMEROOARM 18:47 → 1NENUOBS 18:47
PROVIDERS: ADMIT Obstetrics & Gynecology; ATTEND Obstetrics & Gynecology